=== PATIENT | female | born 2000 ===

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

== ENCOUNTER 2018-02-10 23:26 | Emergency (ER) | payer MEDICAID, OTHER ==
[2018-02-10 23:33] VITALS: RESP 16; TEMP 98.1
--- NOTE | 2018-02-11 00:33 | ED PDOC ---
HPI: Psych/Substance Abuse Time Seen by Provider: 02/10/18 23:40 Chief Complaint (Nursing): Psychiatric Evaluation Chief Complaint (Provider): psych eval History Per: Patient History/Exam Limitations: no limitations Suicide/Self Injury Attempted (Context): Ingestion Additional Complaint(s): 17 y/o female brought in by EMS with father for psych evaluation. Patient states she was feeling sad tonight so she took 6 pills of Amoxicillin 500mg tablets to harm herself. Patient states she then called 911 and her boyfriend to let them know and then texted her father. Denies suicidal/homicidal i deations, hallucinations, nausea/vomiting, abdominal pain or other acute physical complaints. Past Medical History Reviewed: Historical Data, Nursing Documentation, Vital Signs Vital Signs: Last Vital Signs Temp 98.1 F 02/10/18 23:31 Pulse 96 H 02/10/18 23:31 Resp 16 02/10/18 23:31 BP 147/57 L 02/10/18 23:31 Pulse Ox 99 02/10/18 23:31 - Medical History PMH: Depression - Surgical History Surgical History: No Surg Hx - Family History Family History: States: Unknown Family Hx - Living Arrangements Living Arrangements: With Family - Immunization History Hx Tetanus Toxoid Vaccination: No Hx Influenza Vaccination: No Hx Pneumococcal Vaccination: No - Home Medications Home Medications: Ambulatory Orders Medication Instructions Recorded Polyethylene Glycol 3350 [Miralax] 1 tbs PO DAILY PRN #1 bottle 07/08/17 - Allergies Allergies/Adverse Reactions: Allergies Allergy/AdvReac Type Severity Reaction Status Date / Time No Known Allergies Allergy Verified 02/10/18 23:31 Review of Systems ROS Statement: Except As Marked, All Systems Reviewed And Found Negative Psych: Positive for: Depression, Suicidal ideation Physical Exam - Reviewed Nursing Documentation Reviewed: Yes Vital Signs Reviewed: Yes - Physical Exam Appears: Positive for: Well, Non-toxic, No Acute Distress Head Exam: Positive for: ATRAUMATIC, NORMAL INSPECTION, NORMOCEPHALIC Skin: Positive for: Normal Color Eye Exam: Positive for: Normal appearance ENT: Positive for: Normal ENT Inspection Cardiovascular/Chest: Positive for: Regular Rate, Rhythm Respiratory: Positive for: Normal Breath Sounds Gastrointestinal/Abdominal: Positive for: Normal Exam Back: Positive for: Normal Inspection Extremity: Positive for: Normal ROM Neurologic/Psych: Positive for: Alert, Oriented (x3) - Laboratory Results Result Diagrams: 02/11/18 00:52 02/11/18 00:52 - ECG O2 Sat by Pulse Oximetry: 99 - Progress ED Course And Treament: labs, urine, ekg, 1:1, poison control consult RN spoke with poison control, states supportive care as needed 2:45 Patient awake, resting comfortably Crisis eval ordered Patient evaluated by hand bindery assembly worker; does not meet criteria for admission at this time as per Dr. Biggs Appointment given for outpatient Patient requires no further intervention in the ED and is stable for discharge at this time Return precautions given Disposition - Clinical Impression Clinical Impression: Depression - Patient ED Disposition Is Patient to be Admitted: No Counseled Patient/Family Regarding: Studies Performed, Diagnosis, Need For Followup - Disposition Disposition: Routine/Home Disposition Time: 04:14 Condition: STABLE Instructions: Depression
[2018-02-11 01:14] LABS: EOS % 0.6 % (0.0-4.0); HEMOGLOBIN 11.1 g/dL (12.0-16.0); LYMPH # 2.2 K/uL (1.0-4.3); MEAN CELL VOLUME 88.9 fl (81.0-99.0); MEAN CORPUSCULAR HEMOGLOBIN 29.9 pg (27.0-31.0); MEAN CORPUSCULAR HGB CONC 33.6 g/dL (33.0-37.0); MEAN PLATELET VOLUME 7.7 fl (7.2-11.7); MONO # 0.4 K/uL (0.0-0.8); MONO % 7.5 % (0.0-10.0); NEUT # 2.2 K/uL (1.8-7.0); NEUT % 44.9 % (50.0-75.0); NRBC % 0.1 % (0.0-0.0); RBC 3.72 Mil/uL (3.80-5.20); RED CELL DISTRIBUTION WIDTH 13.3 % (11.5-14.5); WHITE BLOOD COUNT 4.8 K/uL (4.8-10.8)
[2018-02-11 01:20] LABS: ACETAMINOPHEN < 10.0 ug/ml (10.0-30.0); SALICYLATE < 1.0 mg/dl
[2018-02-11 01:23] LABS: SQUAMOUS EPITHIAL 2 /hpf (0-5); URINE BILIRUBIN NEGATIVE (NEGATIVE); URINE BLOOD LARGE (NEGATIVE); URINE CLARITY CLEAR (Clear); URINE COLOR YELLOW (YELLOW); URINE GLUCOSE (UA) NEG (Normal); URINE LEUKOCYTE ESTERASE NEG Leu/uL (Negative); URINE PROTEIN NEGATIVE (NEGATIVE); URINE UROBILINOGEN 0.2-1.0 mg/dL (0.2-1.0)
[2018-02-11 01:32] LABS: ALB/GLOB RATIO 1.2 (1.0-2.1); ALT/SGPT 22 U/L (9-52); AST/SGOT 23 U/L (14-36); BLOOD UREA NITROGEN 10 mg/dl (7-17); GFR NON-AFRICAN AMERICAN > 60
[2018-02-11 01:35] LABS: BARBITURATES, UR NEGATIVE (NEGATIVE); BENZODIAZEPINES, UR NEGATIVE (NEGATIVE); OPIATES, UR NEGATIVE (NEGATIVE); PHENCYCLIDINE, UR NEGATIVE (NEGATIVE)
[2018-02-11 06:32] VITALS: BP 100/70; PULSE 70; O2SAT 100
== END 2018-02-11 04:30 | disposition home or self-care (01) ==
LOC: H.ER 23:26
DX: Z00.8 Encounter for other general examination (principal)

== ENCOUNTER 2018-10-12 17:48 | Emergency (ER) | payer SELFPAY ==
--- NOTE | 2018-10-12 20:20 | ED PDOC ---
HPI: Abdomen Time Seen by Provider: 10/12/18 20:02 Chief Complaint (Nursing): Chest Pain Chief Complaint (Provider): : abdominal pain History Per: Patient History/Exam Limitations: no limitations Onset/Duration Of Symptoms: Days (5) Current Symptoms Are (Timing): Still Present Location Of Pain/Discomfort: RLQ, Epigastric, LLQ, Suprapubic Additional Complaint(s): 17 y/o female, approximately 6 weeks , presents for evaluation of abdominal pain x 5 days. Patient states [place] was in the airport [place] home from [place] when pain started; states has been mostly constant, worsened by food. Patient reports one episode of vomiting. Patient also states while cleaning today she developed midsternal chest pain, with difficulty breathing, which lasted a minute then resolved. Patient states she gets these symptoms when she cries, and feels "suffocated". Denies fever, cough, congestion, chest pain, shortness of breath, palpitations, leg pain/swelling, dysuria, hematuria, vaginal bleeding/discharge Past Medical History Reviewed: Historical Data, Nursing Documentation, Vital Signs Primary Care Provider: FAMILY PROVIDER,NO - Medical History PMH: Depression Denies: Diabetes, Hepatitis, HIV, HTN, Seizures, Sexually Transmitted Disease - Surgical History Surgical History: No Surg Hx - Family History Family History: States: Unknown Family Hx - Living Arrangements Living Arrangements: With Family - Immunization History Hx Tetanus Toxoid Vaccination: No Hx Influenza Vaccination: No Hx Pneumococcal Vaccination: No - Home Medications Home Medications: Ambulatory Orders Medication Instructions Recorded Polyethylene Glycol 3350 [Miralax] 1 tbs PO DAILY PRN #1 bottle 07/08/17 Famotidine [Pepcid] 20 mg PO BID #20 tab 10/12/18 - Allergies Allergies/Adverse Reactions: Allergies Allergy/AdvReac Type Severity Reaction Status Date / Time No Known Allergies Allergy Verified 10/12/18 19:33 Review of Systems ROS Statement: Except As Marked, All Systems Reviewed And Found Negative Gastrointestinal: Positive for: Abdominal Pain Physical Exam - Reviewed Nursing Documentation Reviewed: Yes Vital Signs Reviewed: Yes - Physical Exam Appears: Positive for: Well, Non-toxic, No Acute Distress Head Exam: Positive for: ATRAUMATIC, NORMAL INSPECTION, NORMOCEPHALIC Skin: Positive for: Normal Color Eye Exam: Positive for: Normal appearance ENT: Positive for: Normal ENT Inspection Cardiovascular/Chest: Positive for: Regular Rate, Rhythm Respiratory: Positive for: Normal Breath Sounds Gastrointestinal/Abdominal: Positive for: Bowel Sounds, Soft, Tenderness (epigastric. +diffuse pelvic discomfort to palpation). Negative for: Distended, Guarding, Rebound Back: Positive for: Normal Inspection Extremity: Positive for: Normal ROM Neurological/Psych: Positive for: Awake, Alert, Oriented (x3) - Laboratory Results Result Diagrams: 10/12/18 20:54 10/12/18 20:54 - Progress ED Course And Treament: -upreg -udip -cbc -cmp -beta hcg -OB TV u/s EXAM: US Obstetrical, Complete <14 weeks CLINICAL HISTORY: Cramping TECHNIQUE: Transvaginal and transabdominal imaging of the maternal pelvis and a <14 week gestation with image documentation. COMPARISON: None provided. FINDINGS: GESTATION: UTERUS: Uterus measures 7.7 x 5.3 x 6.3 cm and appears anteverted. CERVIX: Cervix measures 3.3 cm and appears closed. OVARIES: Unremarkable. No mass. FREE FLUID: Trace free fluid in the cul de sac. MISCELLANEOUS: A gestational sac is present. A pole is present. A yolk sac is present. heart motion is observed at 102 beats per minute. Mean sac diameter measures 1.6 cm compatible with estimated ultrasound age of 5.6 weeks. Right ovary measures 2.4 x 1.3 x 1.3 cm and demonstrates normal Doppler flow. Left ovary measures 2.9 x 1.6 x 3.4 cm and demonstrates normal Doppler flow. Incidentally noted is a corpus luteum cyst in the left ovary measuring 1.7 cm. IMPRESSION: 1. Single live intrauterine gestation of approximately 5.6 weeks. heart motion observed as described. 2. Additional, incidental findings as described above. Patient states she is feeling better on re-eval. States abdominal pain improved. Tolerated PO. Denies CP, SOB Patient educated on findings, discharged with rx Pepcid Advised diet modification Follow up Boiler Installer within 2-3 days Return precautions given Disposition - Clinical Impression Clinical Impression: Abdominal pain during - Patient ED Disposition Is Patient to be Admitted: No Counseled Patient/Family Regarding: Studies Performed, Diagnosis, Need For Followup, Rx Given - [facility]position [facility] Disposition: Routine/Home Disposition Time: 23:41 Condition: IMPROVED Prescriptions: Famotidine [Pepcid] 20 mg PO BID #20 tab Instructions: Stomach Pain in Early , Stomach Ache and Stomach Upset
[2018-10-12 21:00] LABS: BASO % 0.5 % (0.0-2.0); EOS % 0.5 % (0.0-4.0); HEMOGLOBIN 12.6 g/dL (12.0-16.0); LYMPH # 2.6 K/uL (1.0-4.3); LYMPH % 47.5 % (20.0-40.0); MEAN CELL VOLUME 88.8 fl (81.0-99.0); MEAN CORPUSCULAR HEMOGLOBIN 29.9 pg (27.0-31.0); MEAN CORPUSCULAR HGB CONC 33.6 g/dL (33.0-37.0); MEAN PLATELET VOLUME 7.5 fl (7.2-11.7); MONO # 0.3 K/uL (0.0-0.8); MONO % 6.2 % (0.0-10.0); NEUT # 2.5 K/uL (1.8-7.0); NEUT % 45.3 % (50.0-75.0); NRBC % 0.1 % (0.0-0.0); RBC 4.2 Mil/uL (3.80-5.20); RED CELL DISTRIBUTION WIDTH 13.2 % (11.5-14.5); WHITE BLOOD COUNT 5.6 K/uL (4.8-10.8)
[2018-10-12 21:06] LABS: ALB/GLOB RATIO 1.4 (1.0-2.1); ALBUMIN 4.8 g/dL (3.5-5.0); ALT/SGPT 24 U/L (9-52); AST/SGOT 25 U/L (14-36); BLOOD UREA NITROGEN 8 mg/dl (7-17); CALCIUM 9.3 mg/dL (8.4-10.2); GFR NON-AFRICAN AMERICAN > 60
[2018-10-12 23:53] VITALS: BP 101/57; PULSE 76; RESP 18; TEMP 98.4; O2SAT 99
--- NOTE | 2018-10-13 10:54 | CARD ---
APPROVED REPORT Date of service: 10/12/2018 EKG Measurement Heart [id number] <Conclusion> Normal sinus rhythm Normal ECG
--- NOTE | 2018-10-13 12:30 | US ---
Date of service: 10/12/2018 PROCEDURE: Pelvic ultrasound HISTORY: ; pelvic cramping COMPARISON: None TECHNIQUE: Standard protocol for this study/examination. FINDINGS: LMP: 08/29/2018 Prior examinations from the current : None TECHNIQUE: Real-time 2D imaging, duplex and color Doppler. FINDINGS: Cardiac activity: Present Rate: 102 BPM Measurements: [place] rump length: 0.25 cm Gestational age based on CRL 5 weeks 6 days Gestational age 5 weeks 6 days based on gestational sac measurement 1.57 cm Gestational age derived from LMP: 6 weeks 2 days KAM based on LMP: 06/05/2019. KAM based on biometry: 06/08/2019. Gestational concordance noted Yolk sac identified Cervix: No Cervical abnormalities: Negative examination for cervical dilatation or effacement. Closed cervix measuring 3.32 cm Subchorionic hemorrhage: None UTERUS: 5.3 x 6.3 x 7.7 cm. ADNEXA: Right: 1.3 x 1.3 x 2.4 cm. Normal Doppler arterial waveform documented. Left: 1.6 x 2.9 x 3.4 cm. Corpus luteum cyst 1 x 1.2 x 1.7 cm. Normal Doppler arterial waveform documented Fluid in the cul-de-sac: None IMPRESSION: Five weeks 6 days live intrauterine gestation. Gestational concordance noted. Concordant findings (preliminary report) provided by [email or web address].
== END 2018-10-12 23:56 | disposition home or self-care (01) ==
LOC: H.ER 17:48
DX: O26.899 Other specified pregnancy related conditions, unspecified trimester (principal); R07.89 Other chest pain